=== PATIENT | female | born 1990 | race Caucasian/White ===

== ENCOUNTER → 2021-05-14 | Outpatient (CLI) | payer BC ==
[~2021-05-14] MED LIST: CRS350T PO; NAPR-243 PO; TRM50T PO
--- NOTE | 2021-05-14 15:57 | Diagnostic Imaging Report ---
INDICATION: Routine care. TECHNIQUE: Multiple real-time grayscale images were obtained over the gravid uterus. COMPARISON: None FINDINGS: There is a single live fetus in a cephalic presentation. heart rate was recorded at 165 bpm. Placenta is posterior. Amniotic fluid index is 15.4 cm. Cervical length is 3.1 cm. survey shows kidneys, bladder and stomach to be unremarkable. brain is unremarkable. There is a four-chamber heart. There is a three-vessel cord with normal insertion. spine is unremarkable. Biometrical measurements are as follows: Biparietal 4.38 cm, age 19 weeks 2 days. Head circumference 16.84 cm, age 19 weeks 4 days. Abdominal circumference 14.36 cm, age 19 weeks 5 days. Femur length 3.37 cm, age 20 weeks 4 days. Sonographic estimate age: 19 weeks 6 days. Sonographic estimated date of delivery: 10/02/2021. Estimated Weight: 327 gm (+/- 48g gm). LMP percentile: 38%. heart rate: 165 beats per minute. number: 1 of 1. IMPRESSION: Single live IUP of approximately 19 weeks 6 days gestational age with estimated date of confinement sonographically of 10/02/2021. No complicating features are detected. Dictated by: Dictated on workstation # [id number]
== END ==
LOC: RAD 10:00
PROVIDERS: ATTEND Obstetrics & Gynecology
DX: Z34.02 Encounter for supervision of normal first pregnancy, second trimester (principal); Z3A.19 19 weeks gestation of pregnancy
CPT/HCPCS: 76805

== ENCOUNTER 2021-09-16 05:40 | Outpatient (CLI) | payer BC ==
[~2021-09-16] VITALS: Ht 180.3 cm; Wt 83.1 kg
[2021-09-16] MEDS ORDERED: FERR325T24 PO (14:45)
[2021-09-16] MEDS ORDERED: FAMO40TA72 PO (14:45)
[2021-09-16] MEDS ORDERED: PREN-142 PO (14:45)
[2021-09-16] MEDS ORDERED: FLU QUADRIvalent (3YOA+) 60 mcg/0.5 ml 2021-22(AFLURIA) IM ONE (15:00)
== END 2021-09-16 14:48 | disposition home or self-care (01) ==
LOC: PREOP 05:40
PROVIDERS: ATTEND Obstetrics & Gynecology
DX: Z01.818 Encounter for other preprocedural examination (principal)

== ENCOUNTER 2021-09-19 06:05 | Inpatient (IN) | payer BC ==
[~2021-09-19] VITALS: Ht 177.8 cm; Wt 83.7 kg
[2021-09-19] VITALS (10 sets, daily range): BP systolic 103–125; BP diastolic 56–87
[~2021-09-19 06:05] MED LIST changes: +FAMO40TA72 PO; +FERR325T24 PO; +PREN-142 PO
[2021-09-19] MEDS ORDERED: LACTATED RINGERS 1,000 ML IV PRN ×2 (06:30)
[2021-09-19] MEDS ORDERED: FAMOTIDINE 20MG/2ML IV (PEPCID) IV ONE (06:30)
[2021-09-19] MEDS ORDERED: METOCLOPRAMIDE INJ 10 MG/2 ML (REGLAN) IV ONE (06:30)
[2021-09-19] MEDS ORDERED: CITRIC ACID/SOB CIT (BICITRA) 30 ML UDC PO ONE (06:30)
[2021-09-19] MEDS ORDERED: ceFAZolin 2 GM IV Premixed 50 ML IV ONE (06:30)
[2021-09-19] MEDS ORDERED: CATHETER FLUSH 10 ML SYR IV PRN (06:30)
[2021-09-19 06:38] LABS: BASOPHILS % (AUTO) 1 % (0-10); EOSINOPHILS # (AUTO) 0.1 10^3/uL (0.0-0.3); EOSINOPHILS % (AUTO) 1 % (0-10); HEMATOCRIT 34 % (35-52); HEMOGLOBIN 11.5 g/dL (11.5-16.0); LYMPHOCYTES # (AUTO) 2.4 10^3/uL (1.0-4.0); LYMPHOCYTES % (AUTO) 28 % (12-44); MEAN CORPUSCULAR HEMOGLOBIN 31 pg (25-34); MEAN CORPUSCULAR HGB CONC 34 g/dL (32-36); MEAN CORPUSCULAR VOLUME 92 fL (80-99); MEAN PLATELET VOLUME 11.3 fL (9.0-12.2); MONOCYTES # (AUTO) 0.6 10^3/uL (0.0-1.0); MONOCYTES % (AUTO) 7 % (0-12); NEUTROPHILS # (AUTO) 5.2 10^3/uL (1.8-7.8); NEUTROPHILS % (AUTO) 63 % (42-75); PLATELET COUNT 187 10^3/uL (130-400); WHITE BLOOD COUNT 8.3 10^3/uL (4.3-11.0)
[2021-09-19] MEDS ORDERED: fentaNYL INJ 100 MCG/2 ML AMP ONE (06:51)
[2021-09-19] MEDS ORDERED: ROPIVACAINE 5MG/ML 30ML VIAL ONE (06:51)
[2021-09-19] MEDS ORDERED: OXYTOCIN PRE-MIX DRIP 1,000 ML IV ONE (06:51)
--- NOTE | 2021-09-19 07:10 | History & Physical-OB ---
OB - Chief Complaint & HPI Date/Time Date of Admission: Date of Admission: Sep 19, 2021 at 06:05 Date seen by a Provider: Sep 19, 2021 Time Seen by a Provider: 07:00 Chief Complaint/History OB-Reason for Admission/Chief: Section Hx : 5 Hx Para: 2 Expected Date of Delivery: Sep 30, 2021 Gestational Age in Weeks: 38 Gestational Age in Days: 3 Admission Nurse Assessment Rev: Yes History of Labs A pos Antibody neg RI RPR NR HBsAg NR HIV NR GC neg GBS neg Allergies and Home Medications Allergies Coded Allergies: No Known Drug Allergies (Unverified , 09/12/10) Patient Home Medication List Home Medication List Reviewed: Yes Famotidine (Pepcid) 40 Mg Tablet, 40 MG PO DAILY, (Reported) Entered as Reported by: YE YORK on 09/16/211444 Ferrous Sulfate (Ferosul) 325 Mg Tablet, 325 MG PO DAILY, (Reported) Entered as Reported by: YE YORK on 09/16/211444 Vit No.124/Iron/FA ( Vitamin Tablet) 1 Each Tablet, 1 EACH PO DAILY, (Reported) Entered as Reported by: YE YORK on 09/16/21 144 Discontinued Medications Carisoprodol (Soma) 350 Mg Tablet, 1 TAB PO QID Discontinued Reason: No Longer Taking Prescribed by: CHANCE HARRIS on 09/12/102153 Naproxen (Naprosyn) 500 Mg Tablet, 1 EACH PO BID PRN Discontinued Reason: No Longer Taking Prescribed by: CHANCE HARRIS on 09/12/102153 Tramadol Hcl (Ultram) 50 Mg Tab, 100 MG PO Q6H Discontinued Reason: No Longer Taking Prescribed by: CHANCE HARRIS on 09/12/102153 OB - History Hx of Present Care: Yes Ultrasounds: Normal mid trimester US Obstetrical Complications: Other (Size> Date, Polyhydramnios on last scan) Medical Complications: None Delivery History Adverse Rxn to Tranfusion: No (N/A) Patient Past Medical History n/a Social History/Family History 2nd Hand Smoke Exposure: No Immunizations Hepatitis A: Yes Hepatitis B: Yes OB - Admission Exam Physical Exam Vitals: Vital Signs 09/19/21 06:15 Temp 36.4 Pulse 87 Resp 18 Pulse Ox 100 O2 Delivery Room Air HEENT: NCAT Heart: Rhythm Normal Lungs: Clear Abdomen: Gravid Extremities: Normal Reflexes: Normal Heart Rate: 140's Accelerations: Accelerations Present Decelerations: No Decelerations Short Term Variability: Present Retirement Variability: Average (6-25) Contractions on Admission: 6-10 Minutes Apart Intensity: Mild Labs Laboratory Tests Test 09/19/21 06:20 Range/Units White Blood Count 8.3 4.3-11.0 10^3/uL Red Blood Count 3.66 L 3.80-5.11 10^6/uL Hemoglobin 11.5 11.5-16.0 g/dL Hematocrit 34 L 35-52 % Mean Corpuscular Volume 92 80-99 fL Mean Corpuscular Hemoglobin 31 25-34 pg Mean Corpuscular Hemoglobin Concent 34 32-36 g/dL Red Cell Distribution Width 12.4 10.0-14.5 % Platelet Count 187 130-400 10^3/uL Mean Platelet Volume 11.3 9.0-12.2 fL Immature Granulocyte % (Auto) 1 % Neutrophils (%) (Auto) 63 42-75 % Lymphocytes (%) (Auto) 28 12-44 % Monocytes (%) (Auto) 7 0-12 % Eosinophils (%) (Auto) 1 0-10 % Basophils (%) (Auto) 1 0-10 % Neutrophils # (Auto) 5.2 1.8-7.8 10^3/uL Lymphocytes # (Auto) 2.4 1.0-4.0 10^3/uL Monocytes # (Auto) 0.6 0.0-1.0 10^3/uL Eosinophils # (Auto) 0.1 0.0-0.3 10^3/uL Basophils # (Auto) 0.0 0.0-0.1 10^3/uL Immature Granulocyte # (Auto) 0.0 0.0-0.1 10^3/uL OB - Assessment/Plan/Diagnosis Assessment Assessment: section Admission Dx 31 yo @ 38.3 Size > Dates with Polyhydramnios Previous GBS neg Admission Status: Inpatient Order (span 2 midnights) Reason for Inpatient Admission: Repeat Plan Plan: Section BEREKET BATISTA DO Sep 19, 2021 07:10
--- NOTE | 2021-09-19 07:14 | Discharge Inst-Women's Service ---
Discharge Inst-Women's Serv Depart Medication/Instructions New, Converted or Re-Newed RX: Transmitted to Pharmacy Final Diagnosis POD 2 RLTCS Problems Reviewed?: Yes Consults/Follow Up Additional Follow Up: Yes Orders/Referrals Dr. Espinoza in 7-10 days and in 6 weeks Activity Activity: Activity as Tolerated Driving Instructions: No Driving for 1 Week NO SMOKING: NO SMOKING Nothing Inside Vagina: No Douching, No [place], No Tampons Diet Discharge Diet: No Restrictions Symptoms to Report to : Bleeding Excessive, Pain Increased, Fever Over 101 Degrees F, Vaginal Bleeding Increase, Questions/Concerns For Any Problems or Questions: Contact Your Physician Skin/Wound Care Infection Signs and Symptoms: Increased Redness, Foul Odor of Wound, Increased Drainage, Skin Itchy or Has a Rash, Increased Swelling, Temperature Above 101 F Operative Area Clean and Dry: Keep Incision Clean/Dry Stitches/[place]/Dermabond: Dermabond, Care of Stitches Bathing Instructions: BEREKET Leger DO Sep 19, 2021 07:14
[2021-09-19] MEDS ORDERED: ACHD5005 PO (07:15)
[2021-09-19] MEDS ORDERED: TETANUS,DIPTH,PERTUSS P/F (BOOSTRIX) 0.5 ML VIAL IM SCH (07:15)
[2021-09-19] MEDS ORDERED: NALOXONE 0.4 MG/ML 1 ML (NARCAN) VIAL IV PRN (07:15)
[2021-09-19] MEDS ORDERED: ONDANSETRON 4 MG/2 ML (SDV) Z0FRAN IVP PRN ×2 (07:15→08:45)
[2021-09-19] MEDS ORDERED: IBUP-1773 PO (07:15)
[2021-09-19] MEDS ORDERED: DOCU100C37 PO (07:15)
[2021-09-19] MEDS ORDERED: MEASLES,MUMPS,RUBELLA 1 EA INJ SC SCH (07:15)
[2021-09-19] MEDS ORDERED: PHENYLEPHRINE 100 MCG/ML 10 ML (ANESTHESIA) SYR ONE (07:22)
[2021-09-19] MEDS ORDERED: KETOROLAC 30 MG/ML VIAL ONE ×2 (07:31→07:44)
[2021-09-19] MEDS ORDERED: OXYTOCIN PRE-MIX DRIP 500 ML IV ONE (07:32)
[2021-09-19] MEDS: KETOROLAC 30 MG/ML VIAL IV SCH ×3 (07:58→20:25)
[2021-09-19] MEDS: OXYTOCIN PRE-MIX DRIP 500 ML IV SCH ×2 (08:30→12:33)
[2021-09-19] MEDS ORDERED: HYDROmorphone 2 MG/ML VIAL (DILAUDID) IV ONE (08:45)
[2021-09-19] MEDS ORDERED: FLU QUADRIvalent (3YOA+) 60 mcg/0.5 ml 2021-22(AFLURIA) IM ONE (09:45)
[2021-09-19] MEDS: DOCUSATE SODIUM 100 MG (COLACE) CAP PO SCH ×2 (10:39→20:25)
[2021-09-19] MEDS ORDERED: KETOROLAC 30 MG/ML VIAL IV SCH (12:00)
[2021-09-19] MEDS: HYDROcodone/APAP 5 MG/325 MG (LORTAB) TAB PO PRN ×2 (15:11→23:06)
--- NOTE | 2021-09-19 20:19 | OPERATIVE REPORT ---
DATE OF SERVICE: PREOPERATIVE DIAGNOSES: 1. A 31-year-old G5, P2 at 38 weeks and 3 days' gestation. 2. Previous section x2. 3. Size greater than dates, polyhydramnios. POSTOPERATIVE DIAGNOSES: 1. A 31-year-old G5, P2 at 38 weeks and 3 days' gestation. 2. Previous section x2. 3. Size greater than dates, polyhydramnios. PROCEDURE: Repeat low transverse section. SURGEON: Douglas Batista DO ANESTHESIA: Spinal. ESTIMATED BLOOD LOSS: 800 mL. URINE OUTPUT: 200 mL clear at the end of the procedure. FLUIDS: 1100 mL lactated Ringer's solution. FINDINGS: A live female infant, weight and Apgars were pending. See nursing notes. Grossly normal appearing uterus, bilateral fallopian tubes and ovaries with a large uterine window noted upon entry into the abdomen. SPECIMEN SENT: Placenta. INDICATIONS FOR PROCEDURE: A 31-year-old female is a patient who had sought care in my office. Her care was uncomplicated with the exception of finding of measuring large for dates in the third trimester. An ultrasound revealed amniotic fluid index on the upper levels of normal as well as a very thin lower uterine segment identified on ultrasound. Due to concerns of labor and uterine rupture, I discussed with the patient proceeding with delivery at 38 weeks. Risks of procedure were discussed with the patient in detail. After all of her questions were answered, consent was obtained, the patient was taken to the operating room. OPERATIVE REPORT IN DETAIL: Once in the operating room, spinal analgesia was found to be adequate, placed in the supine position with leftward tilt and prepped and draped in normal sterile fashion. A timeout was performed. Anesthesia was tested. I then make a Pfannenstiel skin incision through the previously existing scar using knife and carried down to underlying fascia using Bovie cautery. The fascial incision extended laterally using Bovie cautery. Superior aspect of fascial incision was then grasped with Lissette clamps, tented up and dissected off the underlying rectus muscles. The inferior aspect of fascial incision was then grasped with Lissette clamps, tented up and dissected off the underlying rectus muscles. The rectus muscles were then dissected down the midline using Causey scissors, which exposed the peritoneum, which I entered bluntly and extended using blunt traction. Jay ring retractor was placed in the peritoneal incision, which offers excellent lateral sidewall retraction. I identified the lower uterine segment, found to be extremely thinned out. We can see movement through the wall of the uterus, the myometrium is so thin. I made a low transverse incision with a knife as thin as I can and rupture of membranes occurs with doing this. I then extended the uterine incision laterally using bandage scissors. The infant was found in vertex presentation. Clear fluid was noted at time of rupture. With gentle fundal pressure, the infant's head was elevated up to the incision where the nares and oropharynx were bulb suctioned. Anterior and posterior shoulders were delivered. Infant was then brought out to the operative field where cord was doubly clamped and cut and was handed off to waiting nurses in attendance. Cord blood was collected. 3-vessel cord with intact placenta was delivered spontaneously thereafter. IV Pitocin was initiated to facilitate uterine contraction. Uterine fundus became firmer with bimanual massage. The uterus was then exteriorized and cleared of all endometrial clots and debris. I then proceeded with closing the uterine incision using 0 Vicryl suture in running locked fashion. Second layer of imbricating 0 Monocryl was placed. Excellent hemostasis was noted after doing this. I then placed the uterus back within the pelvis and copiously irrigated the pelvis using normal saline. Once again, there was no active bleeding noted from any of my dissection planes. I placed Interceed antiadhesive over my low transverse incision. I removed the Jay ring retractor and proceeded with closing the peritoneum using 3-0 Vicryl suture in a running fashion. The rectus muscle was reapproximated using 3-0 Vicryl suture in interrupted fashion. The fascia was reapproximated using 0 Vicryl suture in running fashion. Subcutaneous tissue was reapproximated using 3-0 plain interrupted subcutaneous stitch and skin was reapproximated using 4-0 Monocryl running subcuticular. Dermabond was applied to incision and sterile dressing with adhesive white tape. The patient tolerated the procedure well and sent to recovery area in stable condition. Lap and sponge counts were correct at the end of the procedure. Instrument counts correct as well. Two grams of Ancef given preoperatively for infection prophylaxis. Job ID: [id number] DocumentID: [id number] Dictated Date: 09/19/2021 08:28:26 Client Care Representative Date: 09/19/2021 12:50:39 Dictated By: DOUGLAS BATISTA DO
[2021-09-19] MEDS: CATHETER FLUSH 10 ML SYR IV SCH ×2 (20:25→23:06)
[2021-09-20] MEDS: KETOROLAC 30 MG/ML VIAL IV SCH (02:42)
[2021-09-20 03:52] VITALS: BP 130/76
[2021-09-20 05:45] LABS: BASOPHILS % (AUTO) 0 % (0-10); EOSINOPHILS # (AUTO) 0.2 10^3/uL (0.0-0.3); EOSINOPHILS % (AUTO) 2 % (0-10); HEMATOCRIT 32 % (35-52); HEMOGLOBIN 10.6 g/dL (11.5-16.0); LYMPHOCYTES # (AUTO) 2.4 10^3/uL (1.0-4.0); LYMPHOCYTES % (AUTO) 25 % (12-44); MEAN CORPUSCULAR HEMOGLOBIN 31 pg (25-34); MEAN CORPUSCULAR HGB CONC 33 g/dL (32-36); MEAN CORPUSCULAR VOLUME 93 fL (80-99); MEAN PLATELET VOLUME 11.2 fL (9.0-12.2); MONOCYTES # (AUTO) 0.7 10^3/uL (0.0-1.0); MONOCYTES % (AUTO) 7 % (0-12); NEUTROPHILS # (AUTO) 6.1 10^3/uL (1.8-7.8); NEUTROPHILS % (AUTO) 65 % (42-75); PLATELET COUNT 176 10^3/uL (130-400); WHITE BLOOD COUNT 9.4 10^3/uL (4.3-11.0)
[2021-09-20] MEDS: CATHETER FLUSH 10 ML SYR IV SCH ×2 (06:12→14:37)
[2021-09-20 08:00] VITALS: BP 116/65
[2021-09-20] MEDS: DOCUSATE SODIUM 100 MG (COLACE) CAP PO SCH ×2 (08:18→20:05)
[2021-09-20] MEDS: HYDROcodone/APAP 5 MG/325 MG (LORTAB) TAB PO PRN ×2 (08:18→20:06)
[2021-09-20] MEDS: IBUPROFEN 600 MG (MOTRIN) TAB PO SCH ×3 (09:06→20:06)
--- NOTE | 2021-09-20 09:30 | Postpartum Progress Note ---
Note Note Day # 1 Subjective: Patient is without complaints. Ambulating, voiding. Tolerating a regular diet without nausea or vomiting. Normal lochia. Pain is well controlled with oral pain medications. Objective: Physical Exam: General - Alert and oriented, no apparent distress Abdomen - Soft, appropriately tender to palpation, non-distended, fundus firm at umbilicus; incision c/d/i Extremities - no edema, negative Aristeo's bilaterally Assessment: Post- day # 1, status post RLTCS. Recovering well, hemodynamically stable Acute blood loss anemia Plan: Routine care. Encourage breast feeding. Encourage ambulation. Ferrous sulfate supplementation. Plan for discharge tomorrow Vitals - Labs Vital Signs - I&O Vital Signs Date Time Temp Pulse Resp B/P (MAP) Pulse Ox O2 Delivery O2 Flow Rate FiO2 09/20/21 08:00 36.2 65 16 116/65 (82) 97 Room Air 09/20/21 03:52 36.3 64 14 130/76 (94) 100 09/19/21 23:33 36.4 75 18 109/56 (73) 97 Room Air 09/19/21 20:00 36.7 79 18 104/59 (74) 97 Room Air 09/19/21 18:10 36.4 66 18 111/64 (80) 97 Room Air 09/19/21 14:00 36.7 72 18 118/69 (85) 97 Room Air I & O 09/20/21 07:00 Intake Total 4880 ml Output Total 4400 ml Balance 480 ml Labs Laboratory Tests 09/20/21 05:17: White Blood Count 9.4, Red Blood Count 3.41L, Hemoglobin 10.6L, Hematocrit 32L, Mean Corpuscular Volume 93, Mean Corpuscular Hemoglobin 31, Mean Corpuscular Hemoglobin Concent 33, Red Cell Distribution Width 12.4, Platelet Count 176, Mean Platelet Volume 11.2, Immature Granulocyte % (Auto) 0, Neutrophils (%) (Auto) 65, Lymphocytes (%) (Auto) 25, Monocytes (%) (Auto) 7, Eosinophils (%) (Auto) 2, Basophils (%) (Auto) 0, Neutrophils # (Auto) 6.1, Lymphocytes # (Auto) 2.4, Monocytes # (Auto) 0.7, Eosinophils # (Auto) 0.2, Basophils # (Auto) 0.0, Immature Granulocyte # (Auto) 0.0 XOCHITL VILLEGAS APRN Sep 20, 2021 09:30
[2021-09-20] MEDS ORDERED: IBUPROFEN 600 MG (MOTRIN) TAB PO SCH (12:00)
--- NOTE | 2021-09-20 13:33 | Anesthesia-Regional Post-Op ---
Regional Patient Condition Mental Status: Alert, Oriented x3 Circulation: Same as Pre-Op Headache: Absent Sensation: Full Recovery Motor Block: Absent Post Op Complications Complications None Follow Up Care/Instructions Patient Instructions None needed. Anesthesia/Patient Condition Patient is doing well, no complaints, stable vital signs, no apparent adverse anesthesia problems. No complications reported per nursing. VIOLETA CUNNINGHAM CRNA Sep 20, 2021 13:33
[2021-09-20 14:12] VITALS: BP 111/58
[2021-09-20 20:06] VITALS: BP 108/66
[2021-09-21] MEDS: IBUPROFEN 600 MG (MOTRIN) TAB PO SCH ×3 (01:53→14:18)
[2021-09-21 01:54] VITALS: BP 124/63
[2021-09-21] MEDS: HYDROcodone/APAP 5 MG/325 MG (LORTAB) TAB PO PRN ×3 (01:54→14:19)
[2021-09-21 08:24] VITALS: BP 147/58
[2021-09-21] MEDS: DOCUSATE SODIUM 100 MG (COLACE) CAP PO SCH (08:25)
--- NOTE | 2021-09-21 12:29 | Postpartum Progress Note ---
Note Note Day # 2 Subjective: Patient is without complaints. Ambulating, voiding. Tolerating a regular diet without nausea or vomiting. Normal lochia. Pain is well controlled with oral pain medications. Objective: Physical Exam: General - Alert and oriented, no apparent distress Abdomen - Soft, appropriately tender to palpation, non-distended, fundus firm at umbilicus; incision c/d/i Extremities - no edema, negative Aristeo's bilaterally Assessment: Post- day # 2, status post RLTCS. Recovering well, hemodynamically stable Acute blood loss anemia Plan: Routine care. Encourage breast feeding. Encourage ambulation. Ferrous sulfate supplementation. Plan for discharge today, however patient will board until baby is ready for DC Vitals - Labs Vital Signs - I&O Vital Signs Date Time Temp Pulse Resp B/P (MAP) Pulse Ox O2 Delivery O2 Flow Rate FiO2 09/21/21 08:24 36.9 80 18 147/58 (87) 98 Room Air 09/21/21 01:54 36.8 79 16 124/63 (83) 99 Room Air 09/20/21 20:06 36.8 75 16 108/66 (80) 99 Room Air 09/20/21 14:12 36.6 72 16 111/58 (75) 98 Room Air I & O 09/21/21 07:00 Intake Total 2100 ml Balance 2100 ml XOCHITL VILLEGAS DESIGN ENGINEER Sep 21, 2021 12:29
[2021-09-21 14:30] VITALS: BP 123/83
== END 2021-09-21 14:31 | disposition home or self-care (01) | DRG 787 ==
LOC: LDRP 06:05
PROVIDERS: ADMIT Obstetrics & Gynecology; ATTEND Obstetrics & Gynecology
PROC: 10D00Z1 Extraction of Products of Conception, Low, Open Approach (ICD-10-PCS; principal; 2021-09-19 07:11)
DX: O40.3XX0 Polyhydramnios, third trimester, not applicable or unspecified (principal); D62 Acute posthemorrhagic anemia; O26.843 Uterine size-date discrepancy, third trimester; O34.211 Maternal care for low transverse scar from previous cesarean delivery; Z3A.38 38 weeks gestation of pregnancy; Z37.0 Single live birth; O90.81 Anemia of the puerperium; Z23 Encounter for immunization
CPT/HCPCS: 36415; 85025; 86850; 86900; 86901; 94664